=== PATIENT | male | born 1980 | race Caucasian/White ===

== ENCOUNTER 2017-10-09 08:01 | Outpatient (CLI) | payer BC ==
[2017-10-09] MEDS ORDERED: ISOVUE-370 76%-LOCM 1 ML ONE (11:15)
== END 2017-10-09 08:02 | disposition home or self-care (01) ==
LOC: BICCT 08:01
PROVIDERS: ATTEND Internal Medicine
DX: R10.9 Unspecified abdominal pain (principal)
CPT/HCPCS: 74177

== ENCOUNTER 2017-11-21 20:30 | Outpatient (CLI) | payer BC | END 2017-11-21 20:31 | disposition home or self-care (01) | LOC: SLEEPLAB 20:30 | PROVIDERS: ATTEND Internal Medicine | DX: G47.33 Obstructive sleep apnea (adult) (pediatric) (principal); E66.9 Obesity, unspecified; Z68.41 Body mass index [BMI] 40.0-44.9, adult | CPT/HCPCS: 95810 ==

== ENCOUNTER 2018-01-04 20:30 | Outpatient (CLI) | payer BC | END 2018-01-04 20:31 | disposition home or self-care (01) | LOC: SLEEPLAB 20:30 | PROVIDERS: ATTEND Internal Medicine | DX: G47.33 Obstructive sleep apnea (adult) (pediatric) (principal); G47.00 Insomnia, unspecified; E66.9 Obesity, unspecified; I10 Essential (primary) hypertension; Z68.41 Body mass index [BMI] 40.0-44.9, adult | CPT/HCPCS: 95811 ==

== ENCOUNTER 2018-12-13 07:34 | Outpatient (CLI) | payer BC ==
--- NOTE | 2018-12-13 10:19 | CT ---
CT OF THE ABDOMEN AND PELVIS WITH IV CONTRAST: DATE: 12/13/2018. PROVIDED CLINICAL HISTORY: Right lower quadrant pain. FINDINGS: Comparison is made with the study dated 10/09/2017. Calcified granuloma at the right lung base and calcified hilar lymph nodes are redemonstrated. The v isualized lung bases are free of significant opacity. The liver, spleen, pancreas, kidneys, and adre nal glands demonstrate an unremarkable CT appearance. There is no bowel dilatation, inflammatory fat stranding, free fluid, or lymph node enlargement apparent. No evidence for mural thickening involvi ng regional small or large bowel. The appendix appears normal. There is a small fat-containing right inguinal hernia. There is a small fat-containing umbilical her carol. The regional major vascular structures demonstrate an unremarkable CT appearance. The osseous structures demonstrate no concerning lytic or blastic lesions. IMPRESSION: No evidence for an acute process. Chronic findings as above. POS: [facility]
[2018-12-13] MEDS ORDERED: ISOVUE-370 76%-LOCM 1 ML ONE (12:44)
== END 2018-12-13 07:35 | disposition home or self-care (01) ==
LOC: BICCT 07:34
PROVIDERS: ATTEND Internal Medicine
DX: R10.31 Right lower quadrant pain (principal); J84.10 Pulmonary fibrosis, unspecified; K40.90 Unilateral inguinal hernia, without obstruction or gangrene, not specified as recurrent; K42.9 Umbilical hernia without obstruction or gangrene
CPT/HCPCS: 74177

== ENCOUNTER 2019-01-08 12:35 | Outpatient (CLI) | payer BC ==
--- NOTE | 2019-01-08 15:48 | NM ---
HEPATOBILIARY SCAN: HISTORY:Right upper quadrant pain RADIOPHARMACEUTICAL: 5.2 mCi Technetium 99m Mebrofenin injected intravenously FINDINGS: There is normal tracer extraction by the liver with normal excretion into the biliary tracts and smal l bowel loops and normal filling of the gallbladder. The calculated gallbladder ejection fraction following an oral fatty meal measures 42%. IMPRESSION:Normal exam.
== END 2019-01-08 12:36 | disposition home or self-care (01) ==
LOC: NM 12:35
PROVIDERS: ATTEND Physician Assistant Medical
DX: R10.11 Right upper quadrant pain (principal); R10.31 Right lower quadrant pain; K40.90 Unilateral inguinal hernia, without obstruction or gangrene, not specified as recurrent; K42.9 Umbilical hernia without obstruction or gangrene; R19.4 Change in bowel habit
CPT/HCPCS: 78227; A9537

== ENCOUNTER 2022-10-16 15:07 | Outpatient (CLI) | payer BC | END 2022-10-16 15:08 | disposition home or self-care (01) | LOC: ULT 15:07 | PROVIDERS: ATTEND Internal Medicine | DX: M79.9 Soft tissue disorder, unspecified (principal) | CPT/HCPCS: 76999 ==

== ENCOUNTER 2023-09-04 11:10 | Outpatient (CLI) | payer BC | END 2023-09-04 11:11 | disposition home or self-care (01) | LOC: BICRAD 11:10 | PROVIDERS: ATTEND Internal Medicine | DX: M50.10 Cervical disc disorder with radiculopathy, unspecified cervical region (principal) | CPT/HCPCS: 72040 ==

== ENCOUNTER 2023-10-27 11:02 | Emergency (ER) | payer BC ==
[2023-10-27] MEDS ORDERED: Fluorescein Opthalmic Strip ONE (11:22)
[2023-10-27] MEDS ORDERED: Proparacaine 0.5% Opth 15 ML BOT ONE (11:23)
[2023-10-27] MEDS ORDERED: Cyclopentolate 1% Opth Drop 2 ML BOT EA EYE SCH (11:45)
== END 2023-10-27 13:57 | disposition home or self-care (01) ==
LOC: ERS 11:02
DX: H57.12 Ocular pain, left eye (principal); H40.052 Ocular hypertension, left eye; I10 Essential (primary) hypertension; M10.9 Gout, unspecified; G47.30 Sleep apnea, unspecified; Z79.899 Other long term (current) drug therapy
CPT/HCPCS: 99283

== ENCOUNTER 2024-01-09 10:21 | Outpatient (CLI) | payer BC | END 2024-01-09 10:22 | disposition home or self-care (01) | LOC: CT 10:21 | PROVIDERS: ATTEND Student in an Organized Health Care Education/Training Program | DX: S43.084A Other dislocation of right shoulder joint, initial encounter (principal) ==

== ENCOUNTER 2025-02-22 07:53 | Outpatient (CLI) | payer BC | END 2025-02-22 07:54 | disposition home or self-care (01) | LOC: ULT 07:53 | PROVIDERS: ATTEND Internal Medicine | DX: R19.5 Other fecal abnormalities (principal); R10.9 Unspecified abdominal pain; R16.0 Hepatomegaly, not elsewhere classified; K76.0 Fatty (change of) liver, not elsewhere classified | CPT/HCPCS: 76705; 93976 ==